=== PATIENT | female | born 1975 | race Caucasian/White ===

== ENCOUNTER 2019-04-05 18:42 | Emergency (ER) | payer MEDICAID ==
[~2019-04-05] VITALS: Ht 152.4 cm; Wt 50.0 kg
[~2019-04-05 18:42] MED LIST: CEPH-443 PO; FAMO-96 PO; HYDR-4011 PO; IBUP-1542 PO; IBUP-1561 PO
[2019-04-05 18:46] VITALS: Ht 152.4 cm; Wt 50.0 kg
[2019-04-05] MEDS ORDERED: morphine 4 MG/ML VIAL IV STA (19:04)
[2019-04-05] MEDS ORDERED: CEFTRIAXONE 1 GM/50 ML (PMX) 50 ML IVPB STA (19:04)
[2019-04-05] MEDS ORDERED: SODIUM CHLORIDE 0.9% 1L BAG IV* STA (19:04)
[2019-04-05] MEDS ORDERED: ONDANSETRON 4 MG INJ IV STA (19:04)
[2019-04-05 20:41] VITALS: BP 114/74; PULSE 85; RESP 20
== END 2019-04-05 21:03 | disposition home or self-care (01) ==
LOC: E/R 18:42
DX: R10.9 Unspecified abdominal pain (principal)
CPT/HCPCS: 36415; 71045; 80053; 81001; 81003; 81025; 83605; 84484; 84703; 85025; 85610; 85730; 87040; 87086; 96374; 96375; J0696; J2270; J2405; J7030; Z7502; 93005